=== PATIENT | male | born 1985 | race Caucasian/White ===

== ENCOUNTER 2024-01-28 04:12 | Emergency (ER) | payer MEDICAID, SELFPAY ==
[2024-01-28 04:18] VITALS: BP 119/67; BP 140/80; PULSE 112; PULSE 123; RESP 12; TEMP 37; O2SAT 90; O2SAT 94; BMI 27.9
[2024-01-28 04:29] VITALS: BP 119/67; PULSE 112; RESP 12; TEMP 37.2; O2SAT 94
--- NOTE | 2024-01-28 04:31 | MHC.EDTECH ---
at this time the pt was changed over into hospital gown and socks, belongings removed and collected and placed in closet shelf 4, pt placed on broadcast checker r/t dx of OD.
[2024-01-28 04:37] VITALS: BP 103/60
--- NOTE | 2024-01-28 04:37 | ED_ITS ---
HPI - Overdose General Chief Complaint: Overdose Stated Complaint: POSSIBLE OVERDOSE Time Seen by Provider: 01/28/24 04:26 Source: patient Mode of arrival: EMS Limitations: no limitations History of Present Illness ED Provider: HPI Narrative: Patient's history of cocaine and heroin abuse been using his for long time was resection 35 released on 01/12 relapsed again went to add care came out and again started using it no Narcan was given patient was found wandering on the street Related Data Allergies Allergy/AdvReac Type Severity Reaction Status Date / Time No Known Allergies Allergy Verified 01/28/24 04:24 Review of Systems Review of Systems: Yes all other systems are reviewed and are negative [facility] Social History Social History Alcohol intake: current Alcohol intake frequency: 0-2 drinks per day Alcohol type: hard liquor Smoked in Last 30 Days: Yes Use of substances other than those prescribed or required for medical reasons: Yes Substance Use Type: Crack/Cocaine and Heroin Last Used Substance: Just Prior to Admission Any prior treatment program specific to substance use: Yes Advance Directives: No Advance Directives Information Provided: No Do you have a plan to hurt others: No Plan Physical Exam Vital Signs: Vital Signs: Last Vital Signs Temp 98.2 F 01/28/24 06:21 Pulse 93 01/28/24 06:21 Resp 14 01/28/24 06:21 BP 101/64 01/28/24 06:21 Pulse Ox 92 01/28/24 06:21 O2 Del Method Room Air 01/28/24 06:21 BMI result Body Mass Index 27.9 Appearance: Alert. Oriented X3. No acute distress. Dozing off frequently saturating 95% Eyes: PERRLA, No Nystagmus ENT: Pharynx normal. Oral Mucosa moist Neck: Normal inspection. Neck supple. CVS: Normal heart rate and rhythm. Pulses normal. Respiratory: No respiratory distress. Equal air entry bilateral, no wheezing/rales/rhonchi Abdomen: Soft and nontender. Bowel sounds are present, no mass palpable, no CVA tenderness Skin: Skin warm and dry. Normal skin color. Normal skin turgor. Extremities: No lower extremity edema. No calf tenderness Neuro: Oriented X 3. No motor deficit. No sensory deficit.No cerebellar signs , cranial nerves II-XII intact Medical Decision Making Medical Decision Making MDM Narrative: Patient with opiate and cocaine abuse saturating 94% at this time does not want to go to detox will watch him till he gets sober and discharge follow up as outpatient with detox Discharge Plan Discharge Clinical Impression: Opiate abuse, episodic, Cocaine abuse Patient Disposition: Still a Patient Instructions: Cocaine Abuse (ED), Opioid Use Disorder (ED) Additional Instructions: Stop using drugs and follow up with detox Print Language: Spanish
[2024-01-28 06:21] VITALS: BP 101/64; PULSE 93; RESP 14; TEMP 36.8; O2SAT 92
[2024-01-28 07:18] VITALS: BP 107/58; PULSE 93; RESP 16; TEMP 36.8; O2SAT 97
[2024-01-28 07:19] VITALS: BP 107/58; PULSE 93; RESP 16; TEMP 36.8; O2SAT 97
[2024-01-28] MEDS: Naloxone HCl Nasal TAKE HOME 4 MG SPRAY 8 MG NOSTRILALT (07:36)
--- NOTE | 2024-01-28 07:40 | PC.NURSE ---
pt more alert at this time. vital signs stable/up to date prior to discharge. belongings obtained from shelf/provided to pt. pt provided w/ 2 take home narcan - educated on importance of use. pt leaving facility at this time.
== END 2024-01-28 07:42 | disposition still patient (30) ==
PROVIDERS: Emergency Provider Internal Medicine
DX: F11.10 Opioid abuse, uncomplicated (principal); F14.10 Cocaine abuse, uncomplicated
CPT/HCPCS: 99285

== ENCOUNTER 2025-01-03 22:01 | Emergency (ER) | payer MEDICAID, SELFPAY ==
[2025-01-03 22:19] VITALS: BP 120/70; PULSE 105; RESP 20; TEMP 36.6; O2SAT 97; BMI 30.4
[2025-01-03 22:34] LABS: MANUAL DIFF FLAG NO
[2025-01-03 22:35] LABS: Hematocrit 38.1 % (42.0-52.0); Hemoglobin 14.2 g/dl (14.0-18.0); Imm Gran Abs Auto 0.03 X10*3/uL (0.00-0.03); Imm Gran Pct Auto 0.5 % (0.0-0.4); Lymphocytes Absolute Auto 0.5 X10*3/uL (1.2-4.9); Mean Corpuscular HGB Conc 37.3 g/dl (31.0-36.0); Mean Corpuscular Hemoglobin 31.9 pg (27.0-33.0); Mean Corpuscular Volume 85.6 fL (80.0-98.0); NRBC Abs Auto 0.000 X10*3/uL (0.0-0.012); NRBC Pct Auto 0.0 /100WBC (0.0-0.2); Platelet Count 229 X10*3/uL (160-400); Red Blood Count 4.45 X10*6/uL (4.60-5.80); White Blood Count 6.3 X10*3/uL (4.8-10.8)
[2025-01-03 22:50] LABS: Alanine Aminotransferase 44 U/L (0-40); Albumin Level 5.1 g/dL (3.5-5.0); Alkaline Phosphatase 94 U/L (39-117); Anion Gap 17 (12-20); Aspartate Amino Transferase 37 U/L (5-37); Blood Urea Nitrogen 14 mg/dL (9-16); Calcium 10.0 mg/dL (8.4-10.2); Carbon Dioxide 23 mmol/L (22-29); Chloride 102 mmol/L (96-108); Creatinine Clr Calc Pharmacy 124.0; Estimated Glomerular Filt Rate > 60; Potassium 4.5 mmol/L (3.3-5.1); Sodium 137 mmol/L (135-145); Total Protein 8.5 g/dL (6.5-8.0)
[2025-01-03 23:04] LABS: IDNOW Serial# 16C4AD1C
[2025-01-03 23:05] LABS: COVID-19 Test Positive (Negative); IDNOW Serial# 152EDE1D; Influenza B2 Negative (Negative)
--- OUTSIDE RECORDS SUMMARY | 2025-01-04 00:43 | XMS_ITS | Clinical Summary ---
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 Name Role Phone Unavailable Primary Care Provider Unavailabl e Social History Tobacco Use Types Packs/Day Years Used Date Smoking Tobacco: Never Assessed Sex and Gender Information Value Date Recorded Sex Assigned at Not on file Legal Sex Male 6:09 PM EDT Gender Identity Not on file Sexual Orientation Not on file Plan of Treatment Health Maintenance Due Date Last Done Comments MMR Vaccines (1 of 1 - Stand memo series) 10/15/1988 Varicella Vaccines (1 of 2 - 13+ 2-dose series) 10/15/2000 DTaP,Tdap,and Td Vaccines (1 - Tdap) 10/15/2005 Hepatitis B Vaccines (1 of 3 - 19+ 3-dose series) 10/15/2006 HPV Vaccines (1 - 3-dose SCD M series) 10/15/2014 Influenza Vaccines (#1) 2024 COVID-19 Vaccine (1 - 2024-2 6 season) 2024 HIB Vaccines Aged Out No longer eligi ble based on patient's age to complete this topic Hepatitis A Vaccines Aged Out No long er eligible based on patient's age to complete this topic IPV Vaccines Aged Out No longer eligi ble based on patient's age to complete this topic Men B Vaccine Aged Out No longer elig ible based on patient's age to complete this topic Meningococcal Vaccine Aged Out No dee [place] eligible based on patient's age to complete this topic Pneumococcal Vaccine Aged Out No long er eligible based on patient's age to complete this topic
--- NOTE | 2025-01-04 00:46 | ED_ITS ---
HPI - General Adult General Chief complaint: General Medical Stated complaint: Headache Time Seen by Provider: 01/04/25 00:30 History of Present Illness HPI narrative: Patient is a 39-year-old male presents today with having generalized malaise headache had some nausea vomiting diarrhea earlier. Patient denies any sick contact but has diffuse total body ache. Minimal cough. Patient is from home. Vaccinated for COVID many years ago. Related Data Allergies Allergy/AdvReac Type Severity Reaction Status Date / Time No Known Allergies Allergy Verified 01/03/25 22:21 Review of Systems 2 Review of Systems: Positive coughing Yes all other systems are reviewed and are negative [facility] Past Medical History Attestation statement: The following information was validated with the patient. Social History Social History Alcohol intake: current Alcohol intake frequency: 0-2 drinks per day Alcohol type: hard liquor Substance Use Type: Crack/Cocaine and Heroin Advance Directives: No Advance Directives Information Provided: Yes Physical Exam ED Exam Exam: Appearance: Alert. Oriented X3. No acute distress. Eyes: Pupils equal, round and reactive to light. ENT: Pharynx normal. Neck: Normal inspection. Neck supple. No lymph nodes noted. No crepitus CVS: Normal heart rate and rhythm. Pulses normal. Normal S1 and S2 Respiratory: No respiratory distress. Breath sounds normal. No Wheezing. No rales Abdomen: Soft and nontender. No rigidity. No distention. good BS x4 Skin: Skin warm and dry. Normal skin color. Normal skin turgor. Extremities: No lower extremity edema. Neurovascular intact to all extremities. No Lacerations. No Rash Neuro: Oriented X 3. No motor deficit. No sensory deficit. Moving all extermities. No slurred speech Vital Signs: Vital Signs - 24 hr 01/03/25 22:19 Temperature 97.9 F Pulse Rate 105 H Respiratory Rate 20 Blood Pressure 120/70 Pulse Oximetry 97 Oxygen Delivery Method Room Air BMI result Body Mass Index 30.4 Medical Decision Making Medical Decision Making MDM Narrative: Well-appearing no acute distress. Patient's feels very weak tired diffuse total body ache. Habits being some headache. Neurologically intact. Patient's COVID test came back positive likely the cause of patient's symptoms. White count is normal. Electrolytes normal. Flu test negative. Will give IV fluids for hydration will monitor and then discharge patient home close follow-up on an outpatient basis O2 sats normal. Patient has no distress. Already had the vaccine a few years ago. He is 39 he is well. Discussed with patient risks and benefits of Paxlovid felt at this time patient does not warrant t Differential Diagnosis Differential Diagnoses: The differential diagnosis associated with the presentation includes Admission/Observation Consideration of admission/observation: Escalation of care including admission/observation considered Lab Data MDM Lab Attestation statement: I reviewed the patient's lab results. 01/03/25 22:29 01/03/25 22:29 Labs: Lab Results 01/03/25 Range/Units 22:29 WBC 6.3 (4.8-10.8) X10*3/uL RBC 4.45 L (4.60-5.80) X10*6/uL Hgb 14.2 (14.0-18.0) g/dl Hct 38.1 L (42.0-52.0) % MCV 85.6 (80.0-98.0) fL MCH 31.9 (27.0-33.0) pg MCHC 37.3 H (31.0-36.0) g/dl RDW 12.6 (11.0-16.0) % Plt Count 229 (160-400) X10*3/uL MPV 8.9 L (9.4-12.4) fL Immature Gran % (Auto) 0.5 H (0.0-0.4) % Neut % (Auto) 83.2 H (45-73) % Lymph % (Auto) 7.7 L (20-40) % [place] % (Auto) 5.5 (2-11) % Eos % (Auto) 2.8 (0-4) % Baso % (Auto) 0.3 (0-2) % Lymph # (Auto) 0.5 L (1.2-4.9) X10*3/uL [place] # (Auto) 0.4 (0.1-1.2) X10*3/uL Eos # (Auto) 0.2 (0.0-0.4) X10*3/uL Baso # (Auto) 0.0 (0.0-0.2) X10*3/uL Abs Immat Gran (auto) 0.03 (0.00-0.03) X10*3/uL Absolute Neuts (auto) 5.3 (2.0-8.3) x10*3/uL Absolute Nucleated RBC 0.000 (0.0-0.012) X10*3/uL Nucleated RBC % (auto) 0.0 (0.0-0.2) /100WBC Sodium 137 (135-145) mmol/L Potassium 4.5 (3.3-5.1) mmol/L Chloride 102 (96-108) mmol/L Carbon Dioxide 23 (22-29) mmol/L Anion Gap 17 (12-20) BUN 14 (9-16) mg/dL Creatinine 0.92 (0.5-1.4) mg/dL Estim Creat Clear Calc 124.0 Estimated GFR > 60 Random Glucose 124 H (60-115) mg/dL Calcium 10.0 (8.4-10.2) mg/dL Total Bilirubin 0.5 (0.0-1.0) mg/dL AST 37 (5-37) U/L ALT 44 H (0-40) U/L Alkaline Phosphatase 94 (39-117) U/L Total Protein 8.5 H (6.5-8.0) g/dL Albumin 5.1 H (3.5-5.0) g/dL COVID-19 ([place]) Positive A (Negative) COVID-19 Clin Com See Note Influenza Type A ([place]) Negative (Negative) Influenza Type B ([place]) Negative (Negative) Influenza A & B Note See Note Chronic Conditions history of substance abuse Social Determinants Patient?s care significantly limited by Social Determinants of Health including: Alcoholism and drug addiction in family, Problems related to primary support group and Unemployment Discharge Plan Discharge Clinical Impression: COVID Patient Disposition: Home, Self-Care Instructions: COVID-19 (Coronavirus Disease 2019) (ED), Safely Care for Someone Who Has COVID-19 (ED) Referrals: [facility] [Physician, Medical] Physician,None [Primary Care Provider, Medical] Print Language: Tunisian
[2025-01-04 02:38] VITALS: BP 110/64; PULSE 78; RESP 16; TEMP 36.6; O2SAT 99
== END 2025-01-04 02:40 | disposition home or self-care (01) ==
PROVIDERS: Emergency Provider Emergency Medicine Emergency Medical Services
DX: U07.1 COVID-19 (principal); R11.2 Nausea with vomiting, unspecified; R51.9 Headache, unspecified; R53.81 Other malaise; R19.7 Diarrhea, unspecified
CPT/HCPCS: 80053; 85025; 87502; 87635; 96361; 96374; 96375; 99283; J1885; J2405